=== PATIENT | male | born 1930 | race Caucasian/White ===

== ENCOUNTER 2016-07-31 10:58 | Outpatient (CLI) | payer MEDICARE, BC | END 2016-07-31 11:00 | LOC: CARD 10:58 | PROVIDERS: ATTEND Internal Medicine Cardiovascular Disease | DX: I50.9 Heart failure, unspecified (principal); R06.02 Shortness of breath; I10 Essential (primary) hypertension; I48.91 Unspecified atrial fibrillation | CPT/HCPCS: G0463 ==

== ENCOUNTER 2017-01-29 12:31 | Outpatient (CLI) | payer MEDICARE, BC | END 2017-01-29 12:32 | LOC: CARD 12:31 | PROVIDERS: ATTEND Nurse Practitioner | DX: I48.2 Chronic atrial fibrillation (principal); I10 Essential (primary) hypertension; I50.22 Chronic systolic (congestive) heart failure | CPT/HCPCS: G0463 ==